=== PATIENT | female | born 1965 | race Caucasian/White ===

== ENCOUNTER 2017-07-02 11:42 | Emergency (ER) | payer MEDICAID ==
[~2017-07-02] VITALS: Ht 170.1 cm; Wt 81.6 kg
[~2017-07-02 11:42] MED LIST: 'PARAFON FORTE500 M1 PO; ACETAMINOPHEN-H1 TA2 PO; ALLEGRA60 MG; ATARAX25 MG PO; BIOTIN1 MG; CIPRO500 MG PO; CIPROFLOXACIN500 MG PO; CRESTOR5 MG PO; CYCLOBENZAPRINE30 MG PO; Carafate1 GM/10 ML PO; FLAGYL500 MG PO; FLEXERIL10 MG PO; FLEXERIL5 MG PO; FLONASE0.05 MG/AC; HYDROCODONE BIT1 T11 PO; IBU800 M1 PO; KLONOPIN1 M1 PO; LEXAPRO10 MG PO; LIPITOR10 MG PO; LORAZEPAM0.5 MG PO; MULTIVITAMIN FO1 CAP; Motrin,Rufen800 MG PO; NAPROSYN500 MG PO; NATURE'S BLEND400 I1; PERCOCET 325 MG1 TA5 PO; PREDNISONE20 MG PO; PRILOSEC20 M1 PO; PRINIVIL10 MG PO; PROGESTERONE200 M2 PO; PROMETRIUM100 MG PO; PROTONIX40 MG PO; PROZAC10 MG PO; ZOFRAN ODT4 MG SL; ZOFRAN4 MG PO; ZYRTEC-D 12HR 51 TER PO
[2017-07-02 12:19] LABS: BILIRUBIN 1+ (NEGATIVE); BLOOD NEGATIVE (NEGATIVE); CLARITY SL CLOUDY (CLEAR); COLOR YELLOW (YELLOW); GLUCOSE NEGATIVE (NEGATIVE); KETONE 3+ (NEGATIVE); LEUKO ESTERASE NEGATIVE (NEGATIVE); NITRITE NEGATIVE (NEGATIVE); PH 6.5 (5.0-9.0); SPECIFIC GRAVITY 1.015 (1.005-1.030); UROBILINOGEN 0.2 E.U./dl (0.2-1.0)
[2017-07-02 12:27] LABS: BACTERIA TRACE; MUCOUS 1+; WBC 0-2 wbc/hpf (0-5)
[2017-07-02 12:29] LABS: BASO % 0.3 % (0.0-1.0); EOS % 0.1 % (1.0-4.0); HEMATOCRIT 35.3 % (37.0-47.0); LYMPH # 1.1 10*3/uL (1.3-4.4); LYMPH % 11.6 % (27.0-41.0); MEAN CELL VOLUME 90.5 fl (81.0-99.0); MEAN CORPUSCULAR HGB 30.8 pg (27.0-31.0); MEAN PLATELET VOLUME 10.4 fl (9.6-12.3); MONO # 0.4 10*3/uL (0.1-1.0); MONO % 4.1 % (3.0-9.0); NEUT # 8.2 10*3/uL (2.3-7.9); NEUT % 83.6 % (47.0-73.0); PLATELET COUNT AUTOMATED 331 10*3/uL (130-400); RED CELL DISTRI WIDTH 13.6 % (0-14.5); WHITE BLOOD COUNT 9.8 10*3/uL (4.8-10.8)
[2017-07-02 12:47] LABS: ALBUMIN 4.1 gm/dl (3.1-4.5); ALKALINE PHOSPHATASE 72 U/L (45-117); BUN 11 mg/dl (7-24); CHLORIDE 106 mmol/L (98-107); CREATININE 0.72 mg/dL (0.55-1.02); LIPASE 123 U/L (73-393); POTASSIUM 4.1 mmol/L (3.5-5.1); SGOT/AST 43 IU/L (3-35); SGPT/ALT 29 U/L (12-78); SODIUM 137 mmol/L (136-145); TOTAL PROTEIN 7.7 gm/dL (6.4-8.2)
[2017-07-02 14:20] VITALS: BP 158/78
[2017-07-02] MEDS ORDERED: ZOFRAN ODT4 MG SL (14:47)
== END 2017-07-02 15:30 | disposition home or self-care (01) ==
LOC: ED 11:42
PROVIDERS: Nurse Practitioner Family
DX: R11.2 Nausea with vomiting, unspecified (principal); R51 Headache; G43.909 Migraine, unspecified, not intractable, without status migrainosus; Z90.710 Acquired absence of both cervix and uterus; Z98.51 Tubal ligation status; Z98.890 Other specified postprocedural states; Z79.899 Other long term (current) drug therapy; Z88.2 Allergy status to sulfonamides; Z88.6 Allergy status to analgesic agent

== ENCOUNTER 2017-09-07 12:36 | Inpatient (IN) | payer MEDICAID ==
[~2017-09-07] VITALS: Ht 170.1 cm; Wt 83.9 kg
[2017-09-07] VITALS (10 sets, daily range): BP systolic 98–120; BP diastolic 56–80
[2017-09-07 13:07] LABS: BILIRUBIN NEGATIVE (NEGATIVE); BLOOD NEGATIVE (NEGATIVE); CLARITY SL CLOUDY (CLEAR); COLOR YELLOW (YELLOW); GLUCOSE NEGATIVE (NEGATIVE); KETONE NEGATIVE (NEGATIVE); LEUKO ESTERASE NEGATIVE (NEGATIVE); NITRITE NEGATIVE (NEGATIVE); UROBILINOGEN 0.2 E.U./dl (0.2-1.0)
[2017-09-07 13:15] LABS: BACTERIA TRACE; EPITHELIAL CELLS 16-20
[2017-09-07 13:26] LABS: BASO # 0.1 10*3/uL (0.0-0.1); BASO % 0.3 % (0.0-1.0); EOS % 0.2 % (1.0-4.0); HEMATOCRIT 36.7 % (37.0-47.0); HEMOGLOBIN 12.6 g/dl (12.0-16.0); LYMPH # 1.7 10*3/uL (1.3-4.4); LYMPH % 10.9 % (27.0-41.0); MEAN CELL VOLUME 88.9 fl (81.0-99.0); MEAN CORPUSCULAR HGB 30.5 pg (27.0-31.0); MEAN CORPUSCULAR HGB CONC 34.3 g/dl (33.0-37.0); MEAN PLATELET VOLUME 10.4 fl (9.6-12.3); MONO # 1.1 10*3/uL (0.1-1.0); MONO % 6.9 % (3.0-9.0); NEUT # 12.7 10*3/uL (2.3-7.9); NEUT % 81.3 % (47.0-73.0); PLATELET COUNT AUTOMATED 307 10*3/uL (130-400); RED BLOOD COUNT 4.13 10*6/uL (4.10-5.10); RED CELL DISTRI WIDTH 12.5 % (0-14.5); WHITE BLOOD COUNT 15.6 10*3/uL (4.8-10.8)
[2017-09-07 13:35] LABS: ACT PARTIAL THROMBO TIME 22.1 SECONDS (20.8-31.5)
[2017-09-07 13:43] LABS: ALBUMIN 3.9 gm/dl (3.1-4.5); ALKALINE PHOSPHATASE 83 U/L (45-117); BUN 21 mg/dl (7-24); CHLORIDE 107 mmol/L (98-107); CREATININE 1.14 mg/dL (0.55-1.02); LIPASE 243 U/L (73-393); SGOT/AST 22 IU/L (3-35); SGPT/ALT 19 U/L (12-78); SODIUM 140 mmol/L (136-145); TOTAL PROTEIN 7.8 gm/dL (6.4-8.2)
--- NOTE | 2017-09-07 13:57 | NUR ---
PT WITH PAIN RELIEF.
--- NOTE | 2017-09-07 14:28 | NUR ---
PT POSITIONED FOR COMFORT WITH ADDITIONAL PILLOW AND BLANKET PROVIDED,ABDOMINAL CRAMPING INCREASING PER PT D/T "LOTS OF MOVMENT".NO ACUTE DISTRESS NOTED AND DR ADLER NOTIFIED.
[2017-09-07] MEDS ORDERED: ZESTORETIC 20-1 EACH PO (15:40)
[2017-09-07] MEDS ORDERED: VITAMIN D-32000 UNIT PO (15:44)
[2017-09-07] MEDS ORDERED: B COMPLEX1 EACH PO (15:45)
--- NOTE | 2017-09-07 15:45 | NUR ---
Time: 1544 A 52 year old FEMALE admitted to 5E under services of GERRI RICE DO. Pt. arrived via OTHER from ER. Chief complaint: ABDOMINAL PAIN. JAHAIRA CARTER
[2017-09-07] MEDS ORDERED: CRESTOR20 M1 PO (15:47)
[2017-09-07] MEDS ORDERED: FOLIC ACID0.8 M1 PO (15:48)
--- NOTE | 2017-09-07 16:19 | NUR ---
DR. CAREY NOTIFIED OF PATIENT CONSULT. THE DOCTOR WAS UPDATED ON THE PATIENTS CONDITION AND RECENT CARE. NO CONCERNS FROM THE DOCTOR.
--- NOTE | 2017-09-07 20:12 | NUR ---
DR COCHRAN AWARE OF MANUAL BP OF 98/56. ORDER FOR ONE LITER BOLUS.
--- NOTE | 2017-09-07 22:17 | NUR ---
MEDICATED WITH PRN MORPHINE FOR PAIN IN ABD RATED 8/10 ON A 0/10 PAIN SCALE, AND PRN ATIVAN FOR ANXIOUSNESS
--- NOTE | 2017-09-07 22:55 | NUR ---
PATIENT CALLED OUT COMPLAINING OF NAUSEA AND DIZZINESS. ZOFRAN NOT DUE UNTIL 1130-12. COOL WASHCLOTH GIVEN. MANUAL BP TAKEN AND WITHIN NORMAL LIMITS. WILL CONTINUE TO MONITOR. BED IN LOWEST POSITION, CALL LIGHT IN REACH
--- NOTE | 2017-09-07 23:15 | NUR ---
MANUAL BP 100/50 PER PA
[2017-09-08] VITALS (7 sets, daily range): BP systolic 90–130; BP diastolic 50–72
--- NOTE | 2017-09-08 00:05 | NUR ---
PATIENT HAD SMALL BOWEL MOVEMENT WITH WATERY, BRIGHT RED STOOL
--- NOTE | 2017-09-08 02:22 | NUR ---
PT. REQLUESTED ZOFRAN AT THIS TIME. PER PTS. NURSE, OKAY TO GIVE ZOFRAN AT THIS TIME. ADM. ZOFRAN.
--- NOTE | 2017-09-08 03:14 | NUR ---
PATIENT MEDICATED WITH PRN TYLENOL FOR PAIN IN THE ABDOMEN. BLOOD PRESSURE 90/58 WILL MONITOR
--- NOTE | 2017-09-08 03:36 | NUR ---
DR COCHRAN AWARE OF PATIENT MANUAL BP 90/56 AND ABD PAIN GETTING WORSE AND EXTENDING UP TO THE CHEST. PATIENT FEELS GASSY. BOLUS ORDERED
[2017-09-08 06:34] LABS: BASO % 0.3 % (0.0-1.0); EOS # 0.1 10*3/uL (0.0-0.4); EOS % 0.7 % (1.0-4.0); LYMPH # 2.6 10*3/uL (1.3-4.4); LYMPH % 26.2 % (27.0-41.0); MEAN CELL VOLUME 90.9 fl (81.0-99.0); MEAN CORPUSCULAR HGB 30.4 pg (27.0-31.0); MEAN CORPUSCULAR HGB CONC 33.4 g/dl (33.0-37.0); MEAN PLATELET VOLUME 10.6 fl (9.6-12.3); MONO # 0.6 10*3/uL (0.1-1.0); MONO % 6.1 % (3.0-9.0); NEUT # 6.7 10*3/uL (2.3-7.9); NEUT % 66.3 % (47.0-73.0); PLATELET COUNT AUTOMATED 256 10*3/uL (130-400); RED BLOOD COUNT 3.29 10*6/uL (4.10-5.10); RED CELL DISTRI WIDTH 12.7 % (0-14.5); WHITE BLOOD COUNT 10.1 10*3/uL (4.8-10.8)
[2017-09-08 06:37] LABS: HEMATOCRIT 29.9 % (37.0-47.0)
[2017-09-08 06:56] LABS: ALBUMIN 3.2 gm/dl (3.1-4.5); ALKALINE PHOSPHATASE 67 U/L (45-117); CHLORIDE 112 mmol/L (98-107); CHOLESTEROL 173 mg/dL (<200); HDL CHOLESTEROL 45 mg/dl (40-60); LDL CHOLESTEROL 82 mg/dL (9-159); PHOSPHOROUS 2.2 mg/dL (2.5-4.9); POTASSIUM 3.5 mmol/L (3.5-5.1); SGOT/AST 18 IU/L (3-35); SGPT/ALT 16 U/L (12-78); SODIUM 143 mmol/L (136-145); TOTAL PROTEIN 6.3 gm/dL (6.4-8.2); TRIGLYCERIDES 231 mg/dl (<150); VLDL CHOLESTEROL 46 mg/dL (6-40)
[2017-09-08 07:06] LABS: BUN 11 mg/dl (7-24)
[2017-09-08 07:45] LABS: VITAMIN D, 25-HYDROXY 32.7 ng/mL (30-100)
--- NOTE | 2017-09-08 15:21 | NUR ---
Shift chart check completed.24 HR chart check completed.
--- NOTE | 2017-09-08 18:09 | NUR ---
MORPHINE 2MG IV FOR ABDOMINAL PAIN "8" AND IT HELPED HER TO "ABOUT A 4". ALSO VISTARIL FOR ANXIETY.
--- NOTE | 2017-09-08 18:13 | NUR ---
NICOTINE PATCH APPLIED FOR SMOKING URGES.
--- NOTE | 2017-09-08 20:00 | NUR ---
ASSUMED CARE OF PATIENT. ASSESSMENT COMPLETE. RESTING IN BED. CALL LIGHT IN REACH. WILL CONTINUE TO MONITOR.
--- NOTE | 2017-09-08 20:03 | NUR ---
DR CAREY CALLED REGARDING PT ORDERS FOR COLO IN AM. HE STATES PT WILL PROBABLY GO AROUND [phone]. HE STATES PT CAN REMAIN ON CLEAR LIQUIDS NOT NPO AT MIDNIGHT, JUST NPO IN AM, NO BREAKFAST. ORDER RECEIVED FOR MAG CITRATE FOR TONIGHT.
--- NOTE | 2017-09-08 21:30 | NUR ---
PER PATIENT, EARLIER ATIVAN EFFECTIVE
--- NOTE | 2017-09-08 22:26 | NUR ---
PATIENT MEDICATED WITH PRN MORPHINE FOR C/P ABD PAIN RATED 9/10 ON A 0/10 PAIN SCALE
[2017-09-09] VITALS (7 sets, daily range): BP systolic 92–135; BP diastolic 55–87
--- NOTE | 2017-09-09 | NUR ---
PER PATIENT, EARLIER MORPHINE EFFECTIVE
--- NOTE | 2017-09-09 02:00 | NUR ---
SLEEPING. RESP EASY AND NONLABORED ON ROOM AIR. NO DISTRESS NOTED. IVF INFUSING PER ORDER WITHOUT DIFFICULTY. CALL LIGHT IN REACH. WILL CONTINUE TO MONITOR.
--- NOTE | 2017-09-09 05:35 | NUR ---
MEDICATED WITH PRN MORPHINE FOR C/O ABDOMINAL PAIN. RATES 04/22
[2017-09-09 06:44] LABS: BASO % 0.4 % (0.0-1.0); EOS # 0.1 10*3/uL (0.0-0.4); EOS % 0.7 % (1.0-4.0); HEMATOCRIT 29.4 % (37.0-47.0); HEMOGLOBIN 9.8 g/dl (12.0-16.0); LYMPH # 2.3 10*3/uL (1.3-4.4); MEAN CELL VOLUME 90.7 fl (81.0-99.0); MEAN CORPUSCULAR HGB 30.2 pg (27.0-31.0); MEAN CORPUSCULAR HGB CONC 33.3 g/dl (33.0-37.0); MEAN PLATELET VOLUME 10.2 fl (9.6-12.3); MONO # 0.5 10*3/uL (0.1-1.0); MONO % 6.6 % (3.0-9.0); NEUT # 4.1 10*3/uL (2.3-7.9); PLATELET COUNT AUTOMATED 256 10*3/uL (130-400); RED BLOOD COUNT 3.24 10*6/uL (4.10-5.10); RED CELL DISTRI WIDTH 12.7 % (0-14.5)
[2017-09-09 06:59] LABS: ALBUMIN 3.2 gm/dl (3.1-4.5); ALKALINE PHOSPHATASE 65 U/L (45-117); BUN 7 mg/dl (7-24); CHLORIDE 112 mmol/L (98-107); CREATININE 0.74 mg/dL (0.55-1.02); PHOSPHOROUS 2.1 mg/dL (2.5-4.9); POTASSIUM 3.1 mmol/L (3.5-5.1); SGOT/AST 26 IU/L (3-35); SGPT/ALT 20 U/L (12-78); SODIUM 144 mmol/L (136-145); TOTAL PROTEIN 6.1 gm/dL (6.4-8.2)
--- NOTE | 2017-09-09 08:12 | NUR ---
Shift chart check completed.24 HR chart check completed. NPO for colonoscopy this am. IV fluids continue. No voiced complaints.
--- NOTE | 2017-09-09 09:00 | NUR ---
Exercise Teacher in to talk to patient. Patient states lives at home with ex . There are few steps in the home. Physician aric smith Pharmacy: [facility] Home health services: none Patient's level of ADLs: INDEPENDENT Patient has working utilities: all working DME: none Follow-up physician's appointment after d/c: will be made by hospitalist nurse director upon discharge Does patient want to access PORTAL?: no Discharge plan discussed with patient, patient lives at home with ex , she is independent in adls and ambulation, drives, patient states she will be going back home and denies any home needs. BRYANNA BOWER
--- NOTE | 2017-09-09 10:06 | NUR ---
MORPHINE 2MG FOR ABDOMINAL DISCOMFORT.
--- NOTE | 2017-09-09 10:48 | NUR ---
EYES CLOSED, RESPIRATIONS EASY. NO FURTHER COMPLAINTS SINCE EARLIER MORPHINE. REMAINS NPO.
--- NOTE | 2017-09-09 16:00 | NUR ---
PATIENT GIVEN TYLENOL AND ATIVAN PER PATIENT REQUEST FOR ABDOMINAL PAIN RATED 6/10. WILL CONTINUE TO MONITOR AND REASSESS.
--- NOTE | 2017-09-09 18:00 | NUR ---
PAIN MEDICATION WAS INNEFFECTIVE. PATIENT GIVEN MORPHINE PER PATIENT REQUEST FOR PAIN RATED 7/10. WILL CONTINUE TO MONITOR AND REASSESS.
--- NOTE | 2017-09-09 19:05 | NUR ---
PAIN MEDICATION HAS BEEN EFFECTIVE. PATIENT IS RESTING COMFORTABLY IN THE BEDSIDE CHAIR. PATIENT RATES PAIN A 2/10 AT THIS TIME. CALL LIGHT WITHIN REACH.
--- NOTE | 2017-09-09 23:12 | NUR ---
ADMINISTERED PRN PAIN MEDICATION MORPHINE. PT STATED PAIN WAS AN 8/10. AFTER RECIEVING MEDICATION PT STATED THAT THE PAIN HAD DECREASED TO 4/10.
--- NOTE | 2017-09-09 23:51 | NUR ---
PT WAS MEDICATED WITH PRN TYLENOL AND PRN VISTERIL PER THE PTS REQUEST FOR COMPLAINTS OF ABD PAIN AND ANXIETY.
[2017-09-10] VITALS: BP 141/97
--- NOTE | 2017-09-10 05:37 | NUR ---
PER PATIENTS REQUEST PRN MORPHINE WAS ADMINISTERED FOR PAIN RATED A 8/10. WILL EVALUATE FOR EFFECTIVENESS.
[2017-09-10 06:15] LABS: BASO % 0.7 % (0.0-1.0); EOS # 0.1 10*3/uL (0.0-0.4); EOS % 1.3 % (1.0-4.0); HEMATOCRIT 30.3 % (37.0-47.0); HEMOGLOBIN 10.3 g/dl (12.0-16.0); LYMPH # 2.3 10*3/uL (1.3-4.4); LYMPH % 37.1 % (27.0-41.0); MEAN CELL VOLUME 90.4 fl (81.0-99.0); MEAN CORPUSCULAR HGB 30.7 pg (27.0-31.0); MEAN PLATELET VOLUME 10.1 fl (9.6-12.3); MONO # 0.4 10*3/uL (0.1-1.0); MONO % 6.8 % (3.0-9.0); NEUT # 3.3 10*3/uL (2.3-7.9); NEUT % 53.9 % (47.0-73.0); PLATELET COUNT AUTOMATED 278 10*3/uL (130-400); RED BLOOD COUNT 3.35 10*6/uL (4.10-5.10); RED CELL DISTRI WIDTH 12.7 % (0-14.5); WHITE BLOOD COUNT 6.1 10*3/uL (4.8-10.8)
[2017-09-10 06:34] LABS: BUN 11 mg/dl (7-24); CHLORIDE 112 mmol/L (98-107); CREATININE 0.68 mg/dL (0.55-1.02); SODIUM 142 mmol/L (136-145)
[2017-09-10 08:00] VITALS: BP 132/75
--- NOTE | 2017-09-10 08:00 | NUR ---
PT RESTING IN BED. RESP-EASY AND REGULAR. NO C/O AT THIS TIME. IVF INFUSING WITH NO PROBLEM. CALL LIGHT IN REACH. SEE SHIFT ASSESSMENT.
--- NOTE | 2017-09-10 09:00 | NUR ---
case management visits with patient, patient denies any home needs
--- NOTE | 2017-09-10 10:40 | NUR ---
PT C/O ABDOMINAL PAIN ALL OVER, RATES PAIN 7 OR 8 ON PAIN SCALE 0-10. MEDICATED WITH MORPHINE IV PER PRN ORDER, SEE EMAR. CALL LIGHT IN REACH.
--- NOTE | 2017-09-10 10:52 | NUR ---
CALLED DR. LOPES MADE AWARE PT STATES SHE TAKES LISINOPRIL AT HOME.
[2017-09-10] MEDS ORDERED: CIPRO500 MG PO (11:26)
[2017-09-10] MEDS ORDERED: PHENERGAN25 M3 PO (11:26)
[2017-09-10] MEDS ORDERED: NORCO 5-325 TA1 EACH PO (11:26)
[2017-09-10] MEDS ORDERED: FLAGYL500 MG PO (11:26)
--- NOTE | 2017-09-10 11:30 | NUR ---
PT UP TO BATHROOM STATES PAIN MEDICATION WAS EFFECTIVE. CALL LIGHT IN REACH.
--- NOTE | 2017-09-10 13:44 | NUR ---
CALLED DR. CAREY AWARE PT DISCHARGED. FOLLOW UP IN ONE WEEK.
--- NOTE | 2017-09-10 13:51 | NUR ---
Discharge instructions reviewed with patient/family. Patient receptive and verbalizes understanding. Follow-up care arranged. Written instructions given to patient/family. HEPLOCK REMOVED. 2X2 APPLIED DON BENSON
--- NOTE | 2017-09-10 13:57 | NUR ---
PT AMBULATORY OFF THE FLOOR. HEPLOCK REMOVED 2X2 APPLIED.
== END 2017-09-10 13:57 | disposition home or self-care (01) | DRG 871 ==
LOC: ED 12:36 → EDHOLD 14:54 → 5E 14:54
PROVIDERS: Emergency Medicine; Hospitalist; Internal Medicine; Internal Medicine Nephrology; ADMIT Internal Medicine
PROC: 0DBL8ZX Excision of Transverse Colon, Via Natural or Artificial Opening Endoscopic, Diagnostic (ICD-10-PCS; principal; 2017-09-09)
DX: A41.9 Sepsis, unspecified organism (principal); K27.4 Chronic or unspecified peptic ulcer, site unspecified, with hemorrhage; K50.111 Crohn's disease of large intestine with rectal bleeding; E44.1 Mild protein-calorie malnutrition; F41.9 Anxiety disorder, unspecified; F32.9 Major depressive disorder, single episode, unspecified; K21.9 Gastro-esophageal reflux disease without esophagitis; E78.5 Hyperlipidemia, unspecified; I10 Essential (primary) hypertension; Z72.0 Tobacco use; Z71.6 Tobacco abuse counseling; Z88.6 Allergy status to analgesic agent; Z88.2 Allergy status to sulfonamides; Z88.8 Allergy status to other drugs, medicaments and biological substances; Z79.899 Other long term (current) drug therapy; Z87.442 Personal history of urinary calculi; Z90.710 Acquired absence of both cervix and uterus; Z98.51 Tubal ligation status; Z72.89 Other problems related to lifestyle; Z82.49 Family history of ischemic heart disease and other diseases of the circulatory system; Z83.3 Family history of diabetes mellitus; Z83.6 Family history of other diseases of the respiratory system; Z90.49 Acquired absence of other specified parts of digestive tract; Z68.29 Body mass index [BMI] 29.0-29.9, adult

== ENCOUNTER 2018-02-07 17:39 | Emergency (ER) | payer MEDICAID ==
[~2018-02-07] VITALS: Ht 167.6 cm; Wt 82.6 kg
[~2018-02-07 17:39] MED LIST changes: +B COMPLEX1 EACH PO; +CRESTOR20 M1 PO; +FOLIC ACID0.8 M1 PO; +NORCO 5-325 TA1 EACH PO; +PHENERGAN25 M3 PO; +VITAMIN D-32000 UNIT PO; +ZESTORETIC 20-1 EACH PO
[2018-02-07 17:42] VITALS: BP 127/77
[2018-02-07 18:03] LABS: BILIRUBIN NEGATIVE (NEGATIVE); BLOOD NEGATIVE (NEGATIVE); CLARITY CLEAR (CLEAR); COLOR YELLOW (YELLOW); GLUCOSE NEGATIVE (NEGATIVE); KETONE NEGATIVE (NEGATIVE); LEUKO ESTERASE NEGATIVE (NEGATIVE); NITRITE NEGATIVE (NEGATIVE); PH 6.5 (5.0-9.0); UROBILINOGEN 0.2 E.U./dl (0.2-1.0)
[2018-02-07 18:12] LABS: BACTERIA TRACE; MUCOUS TRACE
[2018-02-07 18:13] LABS: RBC 0-2 rbc/hpf (0-2)
[2018-02-07] MEDS ORDERED: CYCLOBENZAPRINE5 M3 PO (19:39)
== END 2018-02-07 19:20 | disposition home or self-care (01) ==
LOC: ED 17:39
PROVIDERS: Physician Assistant
DX: R07.81 Pleurodynia (principal); F17.200 Nicotine dependence, unspecified, uncomplicated; Z90.710 Acquired absence of both cervix and uterus; Z98.890 Other specified postprocedural states; Z98.51 Tubal ligation status; Z90.49 Acquired absence of other specified parts of digestive tract; Z79.899 Other long term (current) drug therapy; Z88.2 Allergy status to sulfonamides; Z88.6 Allergy status to analgesic agent; Z87.442 Personal history of urinary calculi

== ENCOUNTER 2018-06-23 06:47 | Emergency (ER) | payer MEDICAID ==
[~2018-06-23] VITALS: Ht 165.1 cm; Wt 77.1 kg
--- NOTE | ~2018-06-23 | EKG ---
[place], [place] ELECTROCARDIOGRAM REPORT NAME: TED STANTON UNIT #: [id number] ROOM: DOCTOR: SEBASTIÁN DRAFT REPORT BIRTHDATE: [birth year] [facility] Test Date: 2018-06-23 Test Time: 08:02:00 Pat Name: TED STANTON Department: Room: Gender: F Dental Officer: NENA : 1965 Requested By: CHATA OJEDA Order Number: [id number] Reading MD: Puja Morris MD Measurements Intervals [place] Rate: 78 P: 35 [place]: 205 QRS: -9 QRSD: 95 T: 35 QT: 415 QTc: 473 Interpretive Statements Sinus rhythm Borderline prolonged [place] interval Inferior infarct, old Electronically Signed On 06-25-2018 13:29:57 PDT by Puja Morris MD CM:EKGRPT:ELECTROCARDIOGRAM REPORT [id number] CHATA CRAFT DRAFT REPORT CHATA OJEDA DO
[~2018-06-23 06:47] MED LIST changes: +CYCLOBENZAPRINE5 M3 PO
[2018-06-23] MEDS ORDERED: ALENDRONATE SOD70 M1 PO (07:08)
[2018-06-23 08:05] LABS: BASO % 0.4 % (0.0-1.0); EOS # 0.1 10*3/uL (0.0-0.4); EOS % 1.3 % (1.0-4.0); HEMOGLOBIN 11.7 g/dl (12.0-16.0); LYMPH # 1.9 10*3/uL (1.3-4.4); LYMPH % 24.5 % (27.0-41.0); MEAN CELL VOLUME 93.1 fl (81.0-99.0); MEAN CORPUSCULAR HGB 31.1 pg (27.0-31.0); MEAN CORPUSCULAR HGB CONC 33.4 g/dl (33.0-37.0); MEAN PLATELET VOLUME 10.2 fl (9.6-12.3); MONO # 0.6 10*3/uL (0.1-1.0); MONO % 7.2 % (3.0-9.0); NEUT # 5.3 10*3/uL (2.3-7.9); NEUT % 66.2 % (47.0-73.0); PLATELET COUNT AUTOMATED 295 10*3/uL (130-400); RED BLOOD COUNT 3.76 10*6/uL (4.10-5.10); RED CELL DISTRI WIDTH 12.8 % (0-14.5); WHITE BLOOD COUNT 7.9 10*3/uL (4.8-10.8)
[2018-06-23 08:14] LABS: ACT PARTIAL THROMBO TIME 22.6 SECONDS (20.8-31.5)
[2018-06-23 08:22] LABS: ALBUMIN 3.9 gm/dl (3.1-4.5); ALKALINE PHOSPHATASE 60 U/L (45-117); BUN 18 mg/dl (7-24); CHLORIDE 109 mmol/L (98-107); CREATININE 1.38 mg/dL (0.55-1.02); LIPASE 215 U/L (73-393); POTASSIUM 3.2 mmol/L (3.5-5.1); SGOT/AST 25 IU/L (3-35); SGPT/ALT 21 U/L (12-78); SODIUM 141 mmol/L (136-145); TOTAL PROTEIN 7.5 gm/dL (6.4-8.2)
[2018-06-23 08:33] LABS: TROPONIN I < 0.015 ng/ml (<0.045)
[2018-06-23] MEDS ORDERED: PERCOCET 5-3251 EACH PO (10:34)
[2018-06-23] MEDS ORDERED: ZOFRAN ODT4 MG SL (10:34)
[2018-06-23 10:43] VITALS: BP 120/80
[2018-06-27] MEDS ORDERED: NORCO 5-325 TA1 EACH PO (20:54)
[2018-08-06] MEDS ORDERED: ROBAXIN500 M1 PO (14:43)
[2018-08-06] MEDS ORDERED: MEDROL DOSEPAK4 MG PO (14:43)
[2018-08-06] MEDS ORDERED: ZOFRAN ODT4 MG SL (14:43)
== END 2018-06-23 11:30 | disposition home or self-care (01) ==
LOC: ED 06:47
PROVIDERS: Emergency Medicine
DX: S20.211A Contusion of right front wall of thorax, initial encounter (principal); S09.90XA Unspecified injury of head, initial encounter; K21.9 Gastro-esophageal reflux disease without esophagitis; E78.5 Hyperlipidemia, unspecified; I10 Essential (primary) hypertension; F17.200 Nicotine dependence, unspecified, uncomplicated; Z88.2 Allergy status to sulfonamides; Z88.6 Allergy status to analgesic agent; Z79.899 Other long term (current) drug therapy; W18.39XA Other fall on same level, initial encounter; Y93.89 Activity, other specified; Y92.89 Other specified places as the place of occurrence of the external cause; Y99.8 Other external cause status

== ENCOUNTER 2018-08-04 07:52 | Emergency (ER) | payer MEDICAID ==
[~2018-08-04] VITALS: Ht 167.6 cm; Wt 75.3 kg
[~2018-08-04 07:52] MED LIST changes: +ALENDRONATE SOD70 M1 PO; +PERCOCET 5-3251 EACH PO
[2018-08-04 07:54] VITALS: BP 128/83
[2018-08-06] MEDS ORDERED: ROBAXIN500 M1 PO (14:43)
[2018-08-06] MEDS ORDERED: MEDROL DOSEPAK4 MG PO (14:43)
[2018-08-06] MEDS ORDERED: ZOFRAN ODT4 MG SL (14:43)
== END 2018-08-04 09:18 | disposition home or self-care (01) ==
LOC: ED 07:52
DX: S22.32XA Fracture of one rib, left side, initial encounter for closed fracture (principal); K21.9 Gastro-esophageal reflux disease without esophagitis; E78.5 Hyperlipidemia, unspecified; I10 Essential (primary) hypertension; F17.200 Nicotine dependence, unspecified, uncomplicated; Z88.2 Allergy status to sulfonamides; Z88.6 Allergy status to analgesic agent; Z79.899 Other long term (current) drug therapy; Z87.442 Personal history of urinary calculi; Z90.710 Acquired absence of both cervix and uterus; Z98.890 Other specified postprocedural states; W01.0XXA Fall on same level from slipping, tripping and stumbling without subsequent striking against object, initial encounter; Y93.89 Activity, other specified; Y92.89 Other specified places as the place of occurrence of the external cause; Y99.8 Other external cause status

== ENCOUNTER 2018-08-09 22:15 | Emergency (ER) | payer MEDICAID ==
[~2018-08-09] VITALS: Ht 167.6 cm; Wt 75.7 kg
[~2018-08-09 22:15] MED LIST changes: +MEDROL DOSEPAK4 MG PO; +ROBAXIN500 M1 PO
[2018-08-09 22:20] VITALS: BP 129/89
== END 2018-08-10 00:41 | disposition home or self-care (01) ==
LOC: ED 22:15
DX: S62.616A Displaced fracture of proximal phalanx of right little finger, initial encounter for closed fracture (principal); S22.42XD Multiple fractures of ribs, left side, subsequent encounter for fracture with routine healing; S09.90XA Unspecified injury of head, initial encounter; Z88.2 Allergy status to sulfonamides; Z88.6 Allergy status to analgesic agent; Z79.899 Other long term (current) drug therapy; W19.XXXA Unspecified fall, initial encounter; Y93.89 Activity, other specified; Y92.89 Other specified places as the place of occurrence of the external cause; Y99.8 Other external cause status

== ENCOUNTER 2020-06-28 10:50 | Emergency (ER) | payer BC ==
[~2020-06-28] VITALS: Ht 167.6 cm; Wt 72.6 kg
[2020-06-28 10:59] VITALS: BP 134/88
[2020-06-28 12:23] LABS: BASO % 0.2 % (0.0-1.0); HEMATOCRIT 38.6 % (37.0-47.0); LYMPH # 1.7 10*3/uL (1.3-4.4); LYMPH % 13.4 % (27.0-41.0); MEAN CELL VOLUME 93.9 fl (81.0-99.0); MEAN CORPUSCULAR HGB 31.6 pg (27.0-31.0); MEAN CORPUSCULAR HGB CONC 33.7 g/dl (33.0-37.0); MEAN PLATELET VOLUME 9.5 fl (9.6-12.3); MONO # 0.9 10*3/uL (0.1-1.0); MONO % 7.1 % (3.0-9.0); NEUT % 79.1 % (47.0-73.0); PLATELET COUNT AUTOMATED 312 10*3/uL (130-400); RED BLOOD COUNT 4.11 10*6/uL (4.10-5.10); RED CELL DISTRI WIDTH 12.4 % (0-14.5); WHITE BLOOD COUNT 12.6 10*3/uL (4.8-10.8)
[2020-06-28 12:37] LABS: ALBUMIN 4.4 gm/dl (3.1-4.5); CREATININE 1.25 mg/dL (0.55-1.02); POTASSIUM 3.7 mmol/L (3.5-5.1); TOTAL PROTEIN 7.9 gm/dL (6.4-8.2)
[2020-06-28] MEDS ORDERED: Meclizine25 MG PO (14:40)
== END 2020-06-28 14:44 | disposition home or self-care (01) ==
LOC: ED 10:50
PROVIDERS: Nurse Practitioner Family
DX: R51 Headache (principal); R42 Dizziness and giddiness; F17.200 Nicotine dependence, unspecified, uncomplicated; Z88.8 Allergy status to other drugs, medicaments and biological substances; Z88.2 Allergy status to sulfonamides; Z79.899 Other long term (current) drug therapy; Z79.2 Long term (current) use of antibiotics; Z90.49 Acquired absence of other specified parts of digestive tract

== ENCOUNTER → 2021-06-30 | Outpatient (CLI) | payer BC ==
[~2021-06-30] MED LIST changes: +Meclizine25 MG PO
== END | disposition home or self-care (01) ==
LOC: RAD 11:28
PROVIDERS: ATTEND Nurse Practitioner Family
DX: R05 Cough (principal); R06.02 Shortness of breath

== ENCOUNTER 2023-03-03 08:51 | Emergency (ER) | payer BC ==
[~2023-03-03] VITALS: Ht 165.1 cm; Wt 68.0 kg
[~2023-03-03 08:51] MED LIST changes: +K-TAB20 MEQ PO; +MAGNESIUM OXID400 MG PO
[2023-03-03 09:00] VITALS: BP 124/75
[2023-03-03] MEDS ORDERED: METHOCARBAMOL500 M1 PO (09:01)
[2023-03-03] MEDS ORDERED: ZESTORETIC 20-1 EACH PO (09:02)
[2023-03-03] MEDS ORDERED: ONDANSETRON4 MG SL (11:37)
[2023-03-04] MEDS ORDERED: PROTONIX40 MG PO (11:27)
[2023-03-04] MEDS ORDERED: PROBIOTIC1 EAC4 PO (11:29)
== END 2023-03-03 11:45 | disposition home or self-care (01) ==
LOC: ED 08:51
DX: M25.552 Pain in left hip (principal); R11.2 Nausea with vomiting, unspecified; I10 Essential (primary) hypertension; F41.9 Anxiety disorder, unspecified; Z88.2 Allergy status to sulfonamides; Z88.8 Allergy status to other drugs, medicaments and biological substances; Z90.49 Acquired absence of other specified parts of digestive tract; Z90.710 Acquired absence of both cervix and uterus; Z98.51 Tubal ligation status; Z98.890 Other specified postprocedural states; F17.200 Nicotine dependence, unspecified, uncomplicated

== ENCOUNTER 2023-03-04 05:11 | Inpatient (IN) | payer BC ==
[~2023-03-04] VITALS: Ht 165.1 cm; Wt 58.7 kg
[~2023-03-04 05:11] MED LIST changes: +METHOCARBAMOL500 M1 PO; +ONDANSETRON4 MG SL
[2023-03-04 05:21] VITALS: BP 118/79
[2023-03-04 06:52] LABS: ALKALINE PHOSPHATASE 130 U/L (46-116); BUN 33 mg/dl (9-23); CHLORIDE 96 mmol/L (98-107); POTASSIUM 2.6 mmol/L (3.4-5.1)
[2023-03-04 06:56] LABS: BILIRUBIN Negative (Negative); BLOOD 2+ (Negative); CLARITY Cloudy (Clear); COLOR Yellow (Yellow); GLUCOSE Negative (Negative); KETONE Trace (Negative); LEUKO ESTERASE 1+ (Negative); NITRITE Negative (Negative); SPECIFIC GRAVITY 1.015 (1.001-1.030); UROBILINOGEN 0.2 E.U./dl (0.0-1.0)
[2023-03-04 06:56] LABS: BASO % 0.2 % (0.0-1.0); HEMATOCRIT 32.6 % (37.0-47.0); LYMPH # 0.4 10*3/uL (1.3-4.4); LYMPH % 2.7 % (27.0-41.0); MEAN CELL VOLUME 94.8 fl (81.0-99.0); MEAN CORPUSCULAR HGB 34.3 pg (27.0-31.0); MEAN CORPUSCULAR HGB CONC 36.2 g/dl (33.0-37.0); MEAN PLATELET VOLUME 10.2 fl (9.6-12.3); MONO # 1.2 10*3/uL (0.1-1.0); MONO % 8.7 % (3.0-9.0); NEUT # 12.2 10*3/uL (2.3-7.9); PLATELET COUNT AUTOMATED 323 10*3/uL (130-400); RED BLOOD COUNT 3.44 10*6/uL (4.10-5.10); RED CELL DISTRI WIDTH 12.6 % (0-14.5); WHITE BLOOD COUNT 13.9 10*3/uL (4.8-10.8)
[2023-03-04 06:57] LABS: SGPT/ALT < 7 U/L (10-49)
[2023-03-04 07:07] LABS: BACTERIA 4+; WBC 51-100 wbc/hpf (0-5)
[2023-03-04 07:32] VITALS: BP 127/83
[2023-03-04 11:00] VITALS: BP 127/80; BP 143/85
[2023-03-04] MEDS ORDERED: PROTONIX40 MG PO (11:27)
[2023-03-04] MEDS ORDERED: PROBIOTIC1 EAC4 PO (11:29)
[2023-03-04 13:20] LABS: URINE CREATININE RANDOM 49.19 mg/dL
[2023-03-04 15:26] VITALS: BP 131/81
[2023-03-04 18:48] LABS: POTASSIUM 2.7 mmol/L (3.4-5.1)
[2023-03-04 20:00] VITALS: BP 140/89
[2023-03-05] VITALS: BP 118/72
[2023-03-05 05:37] LABS: ALKALINE PHOSPHATASE 112 U/L (46-116); BUN 49 mg/dl (9-23); CHLORIDE 99 mmol/L (98-107); CHOLESTEROL 126 mg/dL (<200); FREE T4 0.86 ng/dl (0.89-1.76); LDL CHOLESTEROL 54 mg/dL (9-159); LIPASE 348 U/L (12-53); POTASSIUM 2.5 mmol/L (3.4-5.1); THYROID STIM HORMONE (HS) 0.378 uIU/ml (0.550-4.780); TOTAL PROTEIN 5.8 gm/dL (6.0-8.0); TRIGLYCERIDES 117 mg/dl (<150)
[2023-03-05 05:42] LABS: SGPT/ALT < 7 U/L (10-49)
[2023-03-05 06:40] LABS: BASO % 0.3 % (0.0-1.0); EOS # 0.1 10*3/uL (0.0-0.4); EOS % 0.5 % (1.0-4.0); HEMATOCRIT 30.3 % (37.0-47.0); LYMPH # 0.5 10*3/uL (1.3-4.4); LYMPH % 3.8 % (27.0-41.0); MEAN CELL VOLUME 97.4 fl (81.0-99.0); MEAN PLATELET VOLUME 10.5 fl (9.6-12.3); MONO # 1.1 10*3/uL (0.1-1.0); MONO % 8.5 % (3.0-9.0); NEUT # 11.2 10*3/uL (2.3-7.9); NEUT % 86.4 % (47.0-73.0); PLATELET COUNT AUTOMATED 315 10*3/uL (130-400); RED BLOOD COUNT 3.11 10*6/uL (4.10-5.10); RED CELL DISTRI WIDTH 12.8 % (0-14.5)
[2023-03-05 08:00] VITALS: BP 129/57
[2023-03-05 12:00] VITALS: BP 124/58
[2023-03-05 16:00] VITALS: BP 123/72
[2023-03-05 18:40] LABS: ALKALINE PHOSPHATASE 115 U/L (46-116); CHLORIDE 99 mmol/L (98-107); POTASSIUM 2.5 mmol/L (3.4-5.1); TOTAL PROTEIN 5.8 gm/dL (6.0-8.0)
[2023-03-05 18:41] LABS: BUN 36 mg/dl (9-23); SGPT/ALT < 7 U/L (10-49)
[2023-03-05 20:00] VITALS: BP 137/74
[2023-03-06] VITALS: BP 140/74
[2023-03-06 05:45] LABS: POTASSIUM 3.4 mmol/L (3.4-5.1)
[2023-03-06 06:31] LABS: BASO % 0.3 % (0.0-1.0); EOS # 0.1 10*3/uL (0.0-0.4); EOS % 0.6 % (1.0-4.0); HEMATOCRIT 30.1 % (37.0-47.0); LYMPH # 0.7 10*3/uL (1.3-4.4); LYMPH % 5.3 % (27.0-41.0); MEAN CELL VOLUME 97.1 fl (81.0-99.0); MEAN CORPUSCULAR HGB 34.5 pg (27.0-31.0); MEAN CORPUSCULAR HGB CONC 35.5 g/dl (33.0-37.0); MEAN PLATELET VOLUME 10.6 fl (9.6-12.3); MONO # 1.1 10*3/uL (0.1-1.0); MONO % 8.6 % (3.0-9.0); NEUT # 10.4 10*3/uL (2.3-7.9); NEUT % 84.8 % (47.0-73.0); PLATELET COUNT AUTOMATED 297 10*3/uL (130-400); RED CELL DISTRI WIDTH 12.6 % (0-14.5); WHITE BLOOD COUNT 12.3 10*3/uL (4.8-10.8)
[2023-03-06 08:00] VITALS: BP 140/82
[2023-03-06 12:00] VITALS: BP 127/70
[2023-03-06 16:00] VITALS: BP 144/76
[2023-03-06 20:00] VITALS: BP 151/81
[2023-03-07] VITALS: BP 143/75
[2023-03-07 06:21] LABS: BASO % 0.4 % (0.0-1.0); EOS # 0.1 10*3/uL (0.0-0.4); EOS % 1.1 % (1.0-4.0); HEMATOCRIT 28.3 % (37.0-47.0); LYMPH # 0.8 10*3/uL (1.3-4.4); LYMPH % 7.2 % (27.0-41.0); MEAN CELL VOLUME 99.3 fl (81.0-99.0); MEAN CORPUSCULAR HGB 34.7 pg (27.0-31.0); MEAN PLATELET VOLUME 9.8 fl (9.6-12.3); MONO % 9.9 % (3.0-9.0); NEUT # 8.4 10*3/uL (2.3-7.9); PLATELET COUNT AUTOMATED 307 10*3/uL (130-400); RED BLOOD COUNT 2.85 10*6/uL (4.10-5.10); RED CELL DISTRI WIDTH 12.9 % (0-14.5); WHITE BLOOD COUNT 10.4 10*3/uL (4.8-10.8)
[2023-03-07 06:39] LABS: POTASSIUM 3.9 mmol/L (3.4-5.1)
[2023-03-07 08:00] VITALS: BP 132/74
[2023-03-07 12:00] VITALS: BP 126/74
[2023-03-07 16:00] VITALS: BP 110/55
[2023-03-07 20:00] VITALS: BP 157/83
[2023-03-08 00:05] VITALS: BP 143/85
[2023-03-08 04:12] LABS: BASO # 0.1 10*3/uL (0.0-0.1); BASO % 0.8 % (0.0-1.0); EOS # 0.1 10*3/uL (0.0-0.4); EOS % 1.4 % (1.0-4.0); HEMATOCRIT 27.4 % (37.0-47.0); LYMPH # 0.9 10*3/uL (1.3-4.4); LYMPH % 10.2 % (27.0-41.0); MEAN CELL VOLUME 101.1 fl (81.0-99.0); MEAN CORPUSCULAR HGB 33.9 pg (27.0-31.0); MEAN CORPUSCULAR HGB CONC 33.6 g/dl (33.0-37.0); MEAN PLATELET VOLUME 9.6 fl (9.6-12.3); MONO # 0.9 10*3/uL (0.1-1.0); MONO % 10.6 % (3.0-9.0); NEUT # 6.7 10*3/uL (2.3-7.9); NEUT % 76.5 % (47.0-73.0); PLATELET COUNT AUTOMATED 315 10*3/uL (130-400); RED BLOOD COUNT 2.71 10*6/uL (4.10-5.10); RED CELL DISTRI WIDTH 13.2 % (0-14.5); WHITE BLOOD COUNT 8.8 10*3/uL (4.8-10.8)
[2023-03-08 06:14] LABS: POTASSIUM 3.7 mmol/L (3.4-5.1)
[2023-03-08 08:00] VITALS: BP 137/82
== END 2023-03-08 13:48 | disposition home or self-care (01) | DRG 871 ==
LOC: ED 05:11 → EDHOLD 09:11 → ICCU 09:11
PROVIDERS: Emergency Medicine; Internal Medicine; Internal Medicine Nephrology; Registered Nurse; ADMIT Internal Medicine; ATTEND Internal Medicine
DX: A41.51 Sepsis due to Escherichia coli [E. coli] (principal); K85.90 Acute pancreatitis without necrosis or infection, unspecified; N17.0 Acute kidney failure with tubular necrosis; E87.1 Hypo-osmolality and hyponatremia; N30.01 Acute cystitis with hematuria; M48.54XA Collapsed vertebra, not elsewhere classified, thoracic region, initial encounter for fracture; E86.0 Dehydration; E87.6 Hypokalemia; F41.9 Anxiety disorder, unspecified; F10.10 Alcohol abuse, uncomplicated; I10 Essential (primary) hypertension; E78.2 Mixed hyperlipidemia; K21.9 Gastro-esophageal reflux disease without esophagitis; F32.9 Major depressive disorder, single episode, unspecified; F17.210 Nicotine dependence, cigarettes, uncomplicated; Z90.710 Acquired absence of both cervix and uterus; Z90.49 Acquired absence of other specified parts of digestive tract; Z98.51 Tubal ligation status; Z88.2 Allergy status to sulfonamides

== ENCOUNTER → 2023-08-20 | Outpatient (CLI) | payer BC ==
[~2023-08-20] MED LIST changes: +ATIVAN1 MG PO; +LISINOPRIL20 MG PO; +NATURE'S BLEND F1 MG PO; +PROBIOTIC1 EAC4 PO; +VITAMIN C500 M4 PO
== END | disposition home or self-care (01) ==
LOC: RAD 08:06
PROVIDERS: ATTEND Nurse Practitioner
DX: M25.512 Pain in left shoulder (principal)

== ENCOUNTER → 2023-08-27 | Day surgery (SDC) | payer BC ==
[2023-08-23 12:12] VITALS: BP 113/79
[2023-08-24 08:16] LABS: BUN 12 mg/dl (9-23); CHLORIDE 109 mmol/L (98-107); POTASSIUM 4.4 mmol/L (3.4-5.1)
[2023-08-27] VITALS (9 sets, daily range): BP systolic 125–158; BP diastolic 79–96
[~2023-08-27] VITALS: Ht 165.1 cm; Wt 59.0 kg
== END | disposition home or self-care (01) ==
LOC: SDC 08-23 12:30
PROVIDERS: ATTEND Orthopaedic Surgery
DX: S42.032A Displaced fracture of lateral end of left clavicle, initial encounter for closed fracture (principal); S43.82XA Sprain of other specified parts of left shoulder girdle, initial encounter; G56.00 Carpal tunnel syndrome, unspecified upper limb; I10 Essential (primary) hypertension; E78.00 Pure hypercholesterolemia, unspecified; K21.9 Gastro-esophageal reflux disease without esophagitis; K27.9 Peptic ulcer, site unspecified, unspecified as acute or chronic, without hemorrhage or perforation; F41.9 Anxiety disorder, unspecified; F32.A Depression, unspecified; Z87.01 Personal history of pneumonia (recurrent); Z87.891 Personal history of nicotine dependence; Z79.899 Other long term (current) drug therapy; Z90.710 Acquired absence of both cervix and uterus; Z98.890 Other specified postprocedural states; X58.XXXA Exposure to other specified factors, initial encounter; Y93.89 Activity, other specified; Y92.89 Other specified places as the place of occurrence of the external cause; Y99.8 Other external cause status

== ENCOUNTER → 2023-09-09 | Outpatient (CLI) | payer BC | END | disposition home or self-care (01) | LOC: ORTHO 01:53 | PROVIDERS: ATTEND Orthopaedic Surgery | DX: S42.032D Displaced fracture of lateral end of left clavicle, subsequent encounter for fracture with routine healing (principal); X58.XXXD Exposure to other specified factors, subsequent encounter ==

== ENCOUNTER → 2023-10-10 | Day surgery (SDC) | payer BC ==
[2023-10-08 10:29] VITALS: BP 137/89
[2023-10-09 07:58] LABS: BUN 11 mg/dl (9-23); CHLORIDE 109 mmol/L (98-107); POTASSIUM 3.9 mmol/L (3.4-5.1)
[~2023-10-10] VITALS: Ht 165.1 cm; Wt 61.2 kg
[2023-10-10] VITALS (7 sets, daily range): BP systolic 125–159; BP diastolic 70–95
[~2023-10-10] MED LIST changes: +ENDOCET 5-3251 EACH PO; +PROZAC40 M1 PO
== END | disposition home or self-care (01) ==
LOC: SDC 09-30 12:30
PROVIDERS: ATTEND Orthopaedic Surgery
DX: S42.032A Displaced fracture of lateral end of left clavicle, initial encounter for closed fracture (principal); I10 Essential (primary) hypertension; E78.00 Pure hypercholesterolemia, unspecified; Z90.710 Acquired absence of both cervix and uterus; W19.XXXA Unspecified fall, initial encounter; Y93.89 Activity, other specified; Y92.89 Other specified places as the place of occurrence of the external cause; Y99.8 Other external cause status; F41.9 Anxiety disorder, unspecified; F32.A Depression, unspecified; F17.210 Nicotine dependence, cigarettes, uncomplicated; Z88.1 Allergy status to other antibiotic agents; Z88.8 Allergy status to other drugs, medicaments and biological substances; Z91.048 Other nonmedicinal substance allergy status
CPT/HCPCS: 01630; 20680; 23552; C1713

== ENCOUNTER 2024-07-14 16:10 | Emergency (ER) | payer SELFPAY ==
[~2024-07-14] VITALS: Wt 63.5 kg
[2024-07-14 16:58] VITALS: BP 136/98
[2024-07-14] MEDS ORDERED: Bacitracin Zinc 14 GM TUBE T ONE (17:25)
[2024-07-14] MEDS ORDERED: Tdap Vaccine 0.5 ML SYR (Adult Vaccine) IM ONE (17:25)
[2024-07-14] MEDS ORDERED: Lidocaine Hydrochloride 2% 10 ML AMP SC ONE (17:25)
== END 2024-07-14 20:20 | disposition home or self-care (01) ==
LOC: ED 16:10
DX: S61.412A Laceration without foreign body of left hand, initial encounter (principal); E87.6 Hypokalemia; E87.1 Hypo-osmolality and hyponatremia; K21.9 Gastro-esophageal reflux disease without esophagitis; E78.5 Hyperlipidemia, unspecified; I10 Essential (primary) hypertension; Z87.442 Personal history of urinary calculi; D64.9 Anemia, unspecified; F41.9 Anxiety disorder, unspecified; F32.A Depression, unspecified; F17.210 Nicotine dependence, cigarettes, uncomplicated; Z88.2 Allergy status to sulfonamides; Z88.5 Allergy status to narcotic agent; Z88.8 Allergy status to other drugs, medicaments and biological substances; Z90.49 Acquired absence of other specified parts of digestive tract; Z90.710 Acquired absence of both cervix and uterus; Z98.51 Tubal ligation status; Z98.890 Other specified postprocedural states; Z53.29 Procedure and treatment not carried out because of patient's decision for other reasons; W01.198A Fall on same level from slipping, tripping and stumbling with subsequent striking against other object, initial encounter; Y93.89 Activity, other specified; Y92.000 Kitchen of unspecified non-institutional (private) residence as the place of occurrence of the external cause; Y99.8 Other external cause status

== ENCOUNTER 2024-10-23 16:04 | Inpatient (IN) | payer MEDICAID ==
[~2024-10-23] VITALS: Ht 167.6 cm; Wt 49.5 kg
[2024-10-23 16:37] VITALS: BP 116/97
[2024-10-23] MEDS ORDERED: MORPHINE Sulfate 2 MG/ML SYR IV ONE (16:45)
[2024-10-23] MEDS ORDERED: diphenhydrAMINE hydrochloride 50 MG/ML VIAL IV ONE (16:45)
[2024-10-23] MEDS ORDERED: FAMOTIDINE 50 ML IV ONE (16:45)
[2024-10-23] MEDS ORDERED: SODIUM CHLORIDE 0.9% 1,000 ML IV ONE (16:45)
[2024-10-23] MEDS ORDERED: Metoclopramide Hydrochloride 10 MG/2 ML VIAL IV ONE (16:45)
[2024-10-23 17:13] LABS: BASO % 0.2 % (0.0-1.0); EOS % 0.2 % (1.0-4.0); HEMATOCRIT 45.4 % (37.0-47.0); MEAN CELL VOLUME 89.2 fl (81.0-99.0); MEAN CORPUSCULAR HGB 28.3 pg (27.0-31.0); MEAN CORPUSCULAR HGB CONC 31.7 g/dl (33.0-37.0); MEAN PLATELET VOLUME 9.6 fl (9.6-12.3); MONO # 0.9 10*3/uL (0.1-1.0); NEUT # 10.1 10*3/uL (2.3-7.9); NEUT % 82.6 % (47.0-73.0); PLATELET COUNT AUTOMATED 679 10*3/uL (130-400); RED BLOOD COUNT 5.09 10*6/uL (4.10-5.10); RED CELL DISTRI WIDTH 13.5 % (0-14.5); WHITE BLOOD COUNT 12.3 10*3/uL (4.8-10.8)
[2024-10-23 17:34] LABS: BUN 16 mg/dl (9-23); CHLORIDE 94 mmol/L (98-107); POTASSIUM 4.5 mmol/L (3.4-5.1)
[2024-10-23] MEDS ORDERED: MAGNESIUM SULFATE 50 ML IV ONE (17:40)
[2024-10-23] MEDS ORDERED: METOPROLOL SUCC25 M2 PO (19:11)
[2024-10-23 19:46] VITALS: BP 97/61
[2024-10-23] MEDS ORDERED: Acetaminophen/Hydrocodone 5 MG/325 MG TABLET PO PRN (20:20)
[2024-10-23] MEDS ORDERED: Magnesium Hydroxide 30 ML UDC PO PRN (20:20)
[2024-10-23] MEDS ORDERED: TEMAZEPAM 15 MG CAP PO PRN (20:20)
[2024-10-23] MEDS ORDERED: ACETAMINOPHEN 325 MG TAB PO PRN (20:20)
[2024-10-23] MEDS ORDERED: MORPHINE Sulfate 2 MG/ML SYR IV PRN (20:20)
[2024-10-23] MEDS ORDERED: Ondansetron Hydrochloride 4 MG/2 ML VIAL IV PRN (20:20)
[2024-10-23] MEDS ORDERED: BISACODYL 5 MG TAB PO PRN (20:20)
[2024-10-23] MEDS ORDERED: ACETAMINOPHEN 650 MG SUPP R PRN (20:20)
[2024-10-23] MEDS ORDERED: BISACODYL 10 MG SUPP R PRN (20:20)
[2024-10-23 20:23] VITALS: BP 114/75
[2024-10-23 22:15] VITALS: BP 134/76
[2024-10-23 23:54] VITALS: BP 114/75
[2024-10-24] VITALS (8 sets, daily range): BP systolic 90–123; BP diastolic 68–78
[2024-10-24 04:38] LABS: BASO % 0.3 % (0.0-1.0); EOS # 0.1 10*3/uL (0.0-0.4); EOS % 0.6 % (1.0-4.0); HEMATOCRIT 36.5 % (37.0-47.0); MEAN CELL VOLUME 87.3 fl (81.0-99.0); MEAN CORPUSCULAR HGB 28.5 pg (27.0-31.0); MEAN CORPUSCULAR HGB CONC 32.6 g/dl (33.0-37.0); MEAN PLATELET VOLUME 9.6 fl (9.6-12.3); MONO # 0.7 10*3/uL (0.1-1.0); MONO % 6.7 % (3.0-9.0); NEUT # 8.2 10*3/uL (2.3-7.9); NEUT % 80.5 % (47.0-73.0); PLATELET COUNT AUTOMATED 550 10*3/uL (130-400); RED BLOOD COUNT 4.18 10*6/uL (4.10-5.10); RED CELL DISTRI WIDTH 13.6 % (0-14.5); WHITE BLOOD COUNT 10.2 10*3/uL (4.8-10.8)
[2024-10-24 04:49] LABS: ACT PARTIAL THROMBO TIME 38.1 SECONDS (20.0-32.1)
[2024-10-24 05:03] LABS: ALKALINE PHOSPHATASE 194 U/L (46-116); BUN 14 mg/dl (9-23); CHLORIDE 98 mmol/L (98-107); CHOLESTEROL 156 mg/dL (<200); FREE T4 1.29 ng/dl (0.89-1.76); LDL CHOLESTEROL 109 mg/dL (9-159); TOTAL PROTEIN 5.4 gm/dL (6.0-8.0); TRIGLYCERIDES 135 mg/dl (<150)
[2024-10-24 05:05] LABS: POTASSIUM 3.3 mmol/L (3.4-5.1)
[2024-10-24 05:06] LABS: SGPT/ALT < 7 U/L (5-49)
[2024-10-24 05:09] LABS: VITAMIN D, 25-HYDROXY 78.9 ng/mL (30-100)
[2024-10-24] MEDS ORDERED: Pantoprazole Sodium 40 MG TAB PO SCH (06:00)
[2024-10-24] MEDS ORDERED: Enoxaparin Sodium 40 MG/0.4 ML SYR SC SCH ×2 (10:00→18:00)
[2024-10-24] MEDS ORDERED: SODIUM CHLORIDE 0.9% 1,000 ML IV ONE ×2 (10:35→23:30)
[2024-10-24] MEDS ORDERED: IOHEXOL 300 MG/ML 100 ML VIAL IV ONE (12:40)
[2024-10-24] MEDS ORDERED: IOHEXOL 300 MG/ML 100 ML VIAL ONE (13:05)
[2024-10-24] MEDS ORDERED: Ondansetron Hydrochloride 4 MG/2 ML VIAL IV PRN (13:20)
[2024-10-24 15:18] LABS: BASO # 0.1 10*3/uL (0.0-0.1); BASO % 0.6 % (0.0-1.0); EOS # 0.1 10*3/uL (0.0-0.4); EOS % 0.7 % (1.0-4.0); HEMATOCRIT 36.7 % (37.0-47.0); MEAN CELL VOLUME 87.8 fl (81.0-99.0); MEAN CORPUSCULAR HGB 28.2 pg (27.0-31.0); MEAN CORPUSCULAR HGB CONC 32.2 g/dl (33.0-37.0); MEAN PLATELET VOLUME 9.7 fl (9.6-12.3); MONO # 0.3 10*3/uL (0.1-1.0); MONO % 3.7 % (3.0-9.0); NEUT # 7.7 10*3/uL (2.3-7.9); NEUT % 87.8 % (47.0-73.0); PLATELET COUNT AUTOMATED 497 10*3/uL (130-400); RED BLOOD COUNT 4.18 10*6/uL (4.10-5.10); RED CELL DISTRI WIDTH 13.7 % (0-14.5); WHITE BLOOD COUNT 8.7 10*3/uL (4.8-10.8)
[2024-10-24 18:15] LABS: BUN 12 mg/dl (9-23); CHLORIDE 96 mmol/L (98-107); POTASSIUM 3.6 mmol/L (3.4-5.1)
[2024-10-24] MEDS ORDERED: Metoprolol Tartrate 5 MG/5 ML VIAL IV ONE (22:50)
[2024-10-24] MEDS ORDERED: Scopolamine 1 PATCH PATCH T PRN (22:50)
[2024-10-25] VITALS (9 sets, daily range): BP systolic 70–111; BP diastolic 40–73
[2024-10-25] MEDS ORDERED: SODIUM CHLORIDE 0.9% 1,000 ML IV ONE ×2 (03:05→05:15)
[2024-10-25 04:45] LABS: BUN 11 mg/dl (9-23); CHLORIDE 101 mmol/L (98-107); LIPASE 73 U/L (12-53); POTASSIUM 2.8 mmol/L (3.4-5.1)
[2024-10-25] MEDS ORDERED: NITROGLYCERIN 1 IN PACKET T SCH (06:00)
[2024-10-25 06:14] LABS: HEMATOCRIT 34.8 % (37.0-47.0); MEAN CELL VOLUME 89.9 fl (81.0-99.0); MEAN CORPUSCULAR HGB 28.4 pg (27.0-31.0); MEAN CORPUSCULAR HGB CONC 31.6 g/dl (33.0-37.0); MEAN PLATELET VOLUME 10.4 fl (9.6-12.3); NUCLEATED RED BLOOD CELL 0.1 % (0.0-0.0); PLATELET COUNT AUTOMATED 519 10*3/uL (130-400); RED BLOOD COUNT 3.87 10*6/uL (4.10-5.10)
[2024-10-25 06:15] LABS: MANUAL DIFF REFLEX YES
[2024-10-25 07:06] LABS: POLYCHROMASIA SLIGHT; TOTAL CELLS COUNTED 100 #CELLS
[2024-10-25 07:07] LABS: BURR CELLS FEW; OVALOCYTES FEW; PLATELET SUFFICIENCY HIGH (NORMAL); ROULEAUX SLIGHT; VACUOLATION OF NEUTROPHILS SLIGHT
[2024-10-25] MEDS ORDERED: POTASSIUM CHLORIDE 20 MEQ TAB PO ONE (08:00)
[2024-10-25] MEDS ORDERED: POTASSIUM CHLORIDE IN WATER 100 ML IV SCH (08:00)
[2024-10-25] MEDS ORDERED: METOPROLOL SUCCINATE XR 50 MG TAB PO SCH (10:00)
[2024-10-25] MEDS ORDERED: Fluoxetine Hydrochloride 20 MG CAP PO SCH (10:00)
[2024-10-25] MEDS ORDERED: METOPROLOL SUCCINATE XR 25 MG TAB PO SCH (10:00)
[2024-10-25] MEDS ORDERED: Enoxaparin Sodium 60 MG/0.6 ML SYR SC SCH (10:00)
[2024-10-25] MEDS ORDERED: fentaNYL CITRATE 100 MCG/2 ML VIAL IV PRN (13:55)
== END 2024-10-25 21:07 | disposition short-term general hospital (02) | DRG 438 ==
LOC: ED 16:04 → EDHOLD 18:28 → 4E 10-24 15:24
PROVIDERS: Emergency Medicine; Student in an Organized Health Care Education/Training Program; ADMIT Student in an Organized Health Care Education/Training Program; ATTEND Student in an Organized Health Care Education/Training Program
PROC: 05HY33Z Insertion of Infusion Device into Upper Vein, Percutaneous Approach (ICD-10-PCS; principal; 2024-10-25)
DX: K85.90 Acute pancreatitis without necrosis or infection, unspecified (principal); E43 Unspecified severe protein-calorie malnutrition; I21.4 Non-ST elevation (NSTEMI) myocardial infarction; R65.11 Systemic inflammatory response syndrome (SIRS) of non-infectious origin with acute organ dysfunction; E87.1 Hypo-osmolality and hyponatremia; Z68.1 Body mass index [BMI] 19.9 or less, adult; I10 Essential (primary) hypertension; E78.5 Hyperlipidemia, unspecified; F32.A Depression, unspecified; K21.9 Gastro-esophageal reflux disease without esophagitis; D72.829 Elevated white blood cell count, unspecified; D64.9 Anemia, unspecified; E87.6 Hypokalemia; R73.9 Hyperglycemia, unspecified; K76.89 Other specified diseases of liver; Z88.8 Allergy status to other drugs, medicaments and biological substances; Z90.49 Acquired absence of other specified parts of digestive tract; Z88.2 Allergy status to sulfonamides; Z90.710 Acquired absence of both cervix and uterus; Z98.51 Tubal ligation status; Z83.6 Family history of other diseases of the respiratory system